=== PATIENT | female | born 1960 | race Caucasian/White ===

== ENCOUNTER 2023-05-18 19:38 | Emergency (ER) | payer BC ==
[2023-05-18] MEDS ORDERED: Cyclobenzaprine 10 MG Tab PO ONE (19:39)
[2023-05-18] MEDS ORDERED: Acetaminophen/HYDROcodone 325-5 MG Tab PO ONE (19:39)
== END 2023-05-18 20:29 | disposition home or self-care (01) ==
LOC: FB.ED 19:38
DX: S39.92XA Unspecified injury of lower back, initial encounter (principal); W18.40XA Slipping, tripping and stumbling without falling, unspecified, initial encounter
CPT/HCPCS: 99283; A9270; 99282